=== PATIENT | female | born 1970 | race Caucasian/White ===

== ENCOUNTER 2024-01-13 01:08 | Day surgery (SDC) | payer OTHER, SELFPAY ==
[2024-01-07 10:00] VITALS: BMI 28.6
--- NOTE | 2024-01-07 10:08 | PC.NURSE ---
Report to the Outpatient Waiting Room, entrance under the green pavilion located off [facility], at time 0600_ on date _01/13/24 . Planned Procedure Time: _0730_. Time changes happen often and if your time is changed the preop area will call you the afternoon before. - You and your visitor will be asked to self-screen and do not enter if you have any COVID symptoms. - A mask is optional within the hospital at this time. Patients may have clear liquids (water, carbonated beverages, clear teas, apple juice) until 3 hours prior to surgery with a maximum of 20 ounces. - No food from midnight until time of surgery - Infants may have breast milk until 4 hours before surgery, formula 6 hours prior to surgery. - Children will be allowed to drink immediately following surgery. If applicable, please bring a bottle or sippy cup to assist with drinking. Juice, water, soda, and popsicles are readily available. For infants on formula, please bring formula the day of surgery. Pacifiers are allowed. Take the following medications with a SIP of water the morning of surgery: NONE DO NOT STOP ANY OF YOUR OTHER PRESCRIPTION MEDICATIONS PRIOR TO SURGERY ?EXCEPT THE FOLLOWING Medications to discontinue per physician NONE Date to take last dose Please no make-up, nail congolese, hairspray, perfume, deodorant, or body powder the day of surgery. No jewelry (including any body piercings) or valuables the day of surgery, leave them at home. Please take a shower or bath the night before, or the morning of, surgery with an antibacterial soap. Wear comfortable, loose fitting clothing. Children are encouraged to wear pajamas. - Jewelry must be removed prior to entering the operating room. Rings and piercings that are not removed may be cut off. - The hospital will not accept responsibility for valuables. - Please leave all valuables, including medications, at home the day of surgery. If you are going home after surgery, a licensed commercial front load driver must drive you home. - NO public transportation without another adult if you receive anesthesia. - We recommend that an adult stay with you for 24 hours following discharge. - We also recommend that you do not drive, make important decision, drink alcoholic beverages, or take any drugs that were not prescribed by your health care provider for at least 24 hours after your discharge time. For Pediatric surgeries, we recommend two adults accompany the child home. Follow any additional instructions given to you from your surgeon. If you or anyone in your household have experienced Covid symptoms in the past week, please notify your surgeon or the nurse liaison at the phone number below for possible testing. Telephone instructions given to _CODY_and asked if any additional questions and then verbalized understanding. Patient advised to call surgeon office or pre surgery nurse liaison [phone] if any additional questions.
[2024-01-13 06:21] VITALS: BMI 28.4
--- NOTE | 2024-01-13 06:42 | P.PNAN_ITS ---
Anes - Initial Pre Proc Eval Procedure: Operation Date: 01/13/24 07:30 Proposed Procedures p Hysteroscopy Dilation and Curettage - Ale Simmons MD Date/Time: 01/13/24 06:42 Surgeon: Ale Simmons MD Pre Op Diagnosis: post menopausal bleeding Patient Data Age: 53 Gender: F Height: 1.65 m Weight: 77.6 kg Allergies Allergy/AdvReac Type Severity Reaction Status Date / Time No Known Allergies Allergy Verified 01/13/24 06:19 Home Medications Medication Instructions Recorded Confirmed Type estradiol 0.05 mg/24 hr semiweekly 01/07/24 History transdermal patch fluticasone propionate 50 1 spray intranasal DAILY 01/07/24 01/07/24 History mcg/actuation nasal spray,suspension losartan 50 mg-hydrochlorothiazide 1 tablet PO DAILY 01/07/24 01/07/24 History 12.5 mg tablet meloxicam 15 mg tablet 15 mg PO DAILY 01/07/24 01/07/24 History misoprostol 200 mcg tablet 1,000 mcg PO DAILY 01/07/24 01/07/24 History montelukast 10 mg tablet 10 mg PO HS 01/07/24 01/07/24 History (Singulair) oxybutynin chloride 5 mg tablet 5 mg PO BID 01/07/24 01/07/24 History rizatriptan 10 mg disintegrating 10 mg PO PRN PRN Migraine Headache 01/07/24 01/07/24 History tablet Patient hx anesthesia problems: none Family hx anesthesia problems: none Results Review: All pre-operative results and documents have been reviewed as part of the pre- operative evaluation. [facility] Past Medical History Medical History (Updated 01/13/24 @ 06:47 by Pk Wagner MD) HTN (hypertension) Overweight Surgical History Surgical History (Updated 01/13/24 @ 06:43 by Pk Wagner MD) History of bunionectomy History of section History of shoulder surgery Social History Social History Smoking status: Never smoker Alcohol intake: current Drinks per week: 3 Living arrangements: with family Anes - Eval Final PreProcedure Day of Procedure 01/13/24 06:42 Patient weight: overweight Heart: regular rate and rhythm Lungs: clear to auscultation Airway: Mallampati scale class II Neurological: alert and oriented Last oral intake: >/= 8 hours ASA classification: II Emergent: no Anesthetic plan: proceed Anesthesia type and monitoring: general GIVS and standard monitoring Results Review: All pre-operative results and documents have been reviewed as part of the pre- operative evaluation. Informed Consent: The patient's anesthetic plan and its attendant risks and benefits were discussed with the patient/family/POA. Questions were solicited and answers provided to the satisfaction of the patient/family/POA.
[2024-01-13] MEDS: ACETAMINOPHEN 500 MG TABLET 1000 MG PO (06:43)
[2024-01-13] MEDS: LACTATED RINGERS 1,000 ML 30 ML IV CONT (06:44)
[2024-01-13 06:54] LABS: Anion Gap 9 mmol/L (4-12); Blood Urea Nitrogen 16 mg/dL (7-17); Calcium 9.5 mg/dL (8.4-10.2); Carbon Dioxide 23 mmol/L (22-30); Chloride 106 mmol/L (98-107); Estimated CRCL calculation 82 ml/min; Estimated Glomerular Filt Rate > 60; Glucose 102 mg/dL (65-110); Potassium 4.1 mmol/L (3.4-5.0); Sodium 138 mmol/L (137-145)
[2024-01-13 07:08] VITALS: BP 116/75; PULSE 82; RESP 16; TEMP 36.7; O2SAT 98
--- NOTE | 2024-01-13 07:17 | WPDHPUPDATE1 ---
History and Physical Update Update Date/Time: 01/13/24 07:17 History and Physical has been reviewed, including an updated exam of the patient. There are NO changes in the patient's condition. Risks, benefits, and alternatives have been discussed and questions answered. Patient agrees to proceed with procedure.
--- NOTE | 2024-01-13 07:17 | PM.HPGS ---
History of Present Illness History of Present Illness Consent: Risks, benefits, and alternatives have been discussed and questions answered. Patient agrees to proceed with procedure. Chief complaint: post menopausal bleeding Narrative: Zeus Dooley is a 53 year old female postmenopausal bleeding. Patient with a history of endometrial ablation therefore workup is being in the operating room. Patient has been given Cytotec 7 days prior to procedure. Risks of infection, bleeding, perforation and inability to enter cavity are reviewed. Patient voices understanding agrees to proceed. Possible pathology was discussed. Review of Systems Review of Systems: not repeated day of surgery; patient states no changes in status PMFSH Past Medical History Medical History (Updated 01/13/24 @ 07:21 by Ale Simmons MD) HTN (hypertension) Migraine (normal spontaneous vaginal delivery) Overweight Surgical History Surgical History (Updated 01/13/24 @ 07:20 by Ale Simmons MD) History of bilateral tubal ligation 2003 with 2nd History of bunionectomy History of section x2 History of endometrial ablation History of shoulder surgery History of tonsillectomy Social History Social History Smoking status: Never smoker Alcohol intake: current Drinks per week: 3 Living arrangements: with family Meds Home Medications and Allergies Home Medications Medication Instructions Recorded Confirmed Type estradiol 0.05 mg/24 hr semiweekly 01/07/24 History transdermal patch fluticasone propionate 50 1 spray intranasal DAILY 01/07/24 01/07/24 History mcg/actuation nasal spray,suspension losartan 50 mg-hydrochlorothiazide 1 tablet PO DAILY 01/07/24 01/07/24 History 12.5 mg tablet meloxicam 15 mg tablet 15 mg PO DAILY 01/07/24 01/07/24 History misoprostol 200 mcg tablet 1,000 mcg PO DAILY 01/07/24 01/07/24 History montelukast 10 mg tablet 10 mg PO HS 01/07/24 01/07/24 History (Singulair) oxybutynin chloride 5 mg tablet 5 mg PO BID 01/07/24 01/07/24 History rizatriptan 10 mg disintegrating 10 mg PO PRN PRN Migraine Headache 01/07/24 01/07/24 History tablet Allergies Allergy/AdvReac Type Severity Reaction Status Date / Time No Known Allergies Allergy Verified 01/13/24 06:19 Vital Signs Vital Signs - 24 hr 01/13/24 07:08 Temperature 98.1 F Pulse Rate 82 Respiratory Rate 16 Blood Pressure 116/75 Pulse Oximetry 98 Oxygen Delivery Room Air Exam Const: General: healthy appearing and alert Orientation/consciousness: patient oriented x3 Resp: Effort & Inspection: normal respiratory effort : External Female Exam: normal external appearance Speculum Exam - Vagina: normal appearance of the vagina and normal vaginal discharge Speculum Exam - Cervix: normal appearance of the cervix Bimanual exam- vagina & uterus: uterine size normal and consistency normal Bimanual Exam- Adnexa, other: normal adnexae and No adnexal tenderness Neuro: General: patient oriented x3 Assessment and Plan Assessment and plan (1) Post-menopausal bleeding: Code(s): N95.0 - Postmenopausal bleeding Status: Acute Assessment and Plan: plan to proceed with D&C hysteroscopy
[2024-01-13] MEDS: KETOROLAC 15 MG/ML VIAL (*BKC) IV PUSH (07:48)
--- NOTE | 2024-01-13 07:54 | P.OP_ITS ---
Procedure Note - Detailed Date of Procedure 01/13/24 Pre-op Diagnosis post menopausal bleeding Post-op Diagnosis Same Procedure Performed D&C hysteroscopy Surgeon Ale Simmons MD Anesthesia MAC Findings The cervix is very stenotic. Endometrium is scarred consistent with prior ablation. Description of Procedure The patient is taken to the operating room and placed under anesthesia in the dorsal lithotomy position. She was prepped and draped in usual sterile fashion. Goldston speculum was placed in the vagina and the cervix grasped on the anterior lip with a tenaculum. The external os is stenotic. The os Finders are used and the cervix is able to be open. The uterus was then sounded to 7cm. The diagnostic hysteroscope was placed and the endometrium is very scarred. No discrete lesions are noted. The cervix is serially dilated to a 6 Hegar. The sharp OO curette is used to curette the endometrium until a good uterine cry was noted in all areas. Minimal tissue was obtained consistent with the visual appearance. All instruments are removed. Sponge, needle, and instrument counts are correct per the OR staff. Patient was awakened from anesthesia and taken to recovery in stable condition. Estimated Blood Loss 5 Drains No Packing No Pathology Yes ( Endometrial curettings) Complications No immediate complications Condition Stable Disposition PACU
[2024-01-13 07:56] VITALS: BP 120/60; PULSE 82; RESP 14; O2SAT 95
[2024-01-13 08:25] VITALS: BP 121/69; PULSE 70; RESP 14
== END 2024-01-13 08:40 | disposition home or self-care (01) ==
PROVIDERS: Anesthesiology; PCP Family Medicine; Visit Provider Obstetrics & Gynecology Gynecology
PROC: 0U5B8ZZ Destruction of Endometrium, Via Natural or Artificial Opening Endoscopic (ICD-10-PCS; CPT 58563; principal; 2024-01-13 07:30)
DX: N95.0 Postmenopausal bleeding (principal); I10 Essential (primary) hypertension; Z79.51 Long term (current) use of inhaled steroids; Z98.890 Other specified postprocedural states
CPT/HCPCS: 58558; 36415; 80048; 88305; A9270; J1885; J2250; J2704; J3010; J7120

== ENCOUNTER 2024-02-13 12:04 | Emergency (ER) | payer OTHER, SELFPAY ==
[2024-02-13 12:16] VITALS: BP 138/74; PULSE 89; RESP 18; TEMP 36.6; O2SAT 97
--- NOTE | 2024-02-13 12:41 | ED.SKABFB ---
HPI - Skin/Abscess/Foreign Bdy General Chief complaint: Skin/Abscess/Foreign Body Stated complaint: rash left arm Time Seen by Provider: 02/13/24 12:32 Source: patient and RN notes reviewed Mode of arrival: ambulatory Limitations: no limitations History of Present Illness HPI narrative: Patient presents today complaining of severely pruritic rash to the left forearm and upper arm. She had this rash to a lesser degrees several weeks ago, it fully resolved, but then returned yesterday and has spread. States the area itches and addison. She has use some calamine lotion spray some relief and, has tried other topical treatments without relief. Denies any new exposures, medications. At onset she was staying in a hotel, but has not been in a hotel recently. Related Data Home Medications Medication Instructions Recorded Confirmed estradiol 0.05 mg/24 hr semiweekly 1 patch transdermal DAILY 01/07/24 02/13/24 transdermal patch fluticasone propionate 50 1 spray intranasal DAILY 01/07/24 02/13/24 mcg/actuation nasal spray,suspension losartan 50 mg-hydrochlorothiazide 1 tablet PO DAILY 01/07/24 02/13/24 12.5 mg tablet meloxicam 15 mg tablet 15 mg PO DAILY 01/07/24 02/13/24 misoprostol 200 mcg tablet 1,000 mcg PO DAILY 01/07/24 02/13/24 montelukast 10 mg tablet 10 mg PO HS 01/07/24 02/13/24 (Singulair) oxybutynin chloride 5 mg tablet 5 mg PO BID 01/07/24 02/13/24 rizatriptan 10 mg disintegrating 10 mg PO PRN PRN Migraine Headache 01/07/24 02/13/24 tablet Allergies Allergy/AdvReac Type Severity Reaction Status Date / Time No Known Allergies Allergy Verified 02/13/24 12:31 Review of Systems Review of Systems: CONSTITUTIONAL: Denies body aches, fever, chills, or sweats. EYES: Denies visual changes, redness, or discharge. ENT: Denies rhinorrhea, congestion, sore throat, or otalgia. CARDIOVASCULAR: Denies chest pain, palpitations, or edema. RESPIRATORY: Denies cough or dyspnea. GASTROINTESTINAL: Denies abdominal pain, nausea, vomiting, or diarrhea. GENITOURINARY: Denies dysuria or hematuria. SKIN: Pruritic rash MUSCULOSKELETAL: Denies back pain, joint pain, or myalgia. NEUROLOGIC: Denies headache, numbness, tingling, or weakness. PSYCH: Denies depression or anxiety. [facility] Past Medical History Medical History HTN (hypertension) Migraine (normal spontaneous vaginal delivery) Overweight Surgical History Surgical History History of bilateral tubal ligation 2003 with 2nd History of bunionectomy History of section x2 History of endometrial ablation History of shoulder surgery History of tonsillectomy Social History Social History Smoking status: Never smoker Alcohol intake: current Drinks per week: 3 Living arrangements: with family Comments At time of signature, I have reviewed and agree with nursing past medical, surgical, social and family history unless otherwise noted. Please see nursing chart for further information. There is no relevant family history pertinent to the presenting complaint Exam Narrative: GENERAL: Well-appearing, well-nourished, and in no acute distress. HEAD: Normocephalic, atraumatic. EYES: EOMI. No redness or drainage. Conjunctivae normal. ENT: Mucous membranes pink and moist. NECK: Normal AROM. CHEST: No respiratory distress. EXTREMITIES: Normal range of motion. No edema. SKIN: Warm, dry.. Capillary refill normal. Normal skin turgor. Left arm: Erythematous raised rash in patches to the proximal forearm, extending to the distal humerus area. No induration, fluctuance, or signs of infection. No flaking or crusting. NEURO: No focal deficits. Alert and oriented x3. Gait steady. PSYCH: Normal affect. No signs of depression or anxiety. Course Cou
== END 2024-02-13 12:56 | disposition home or self-care (01) ==
PROVIDERS: Emergency Provider Nurse Practitioner; PCP Family Medicine
DX: L25.9 Unspecified contact dermatitis, unspecified cause (principal); I10 Essential (primary) hypertension
CPT/HCPCS: 99213; G0463